=== PATIENT | male | born 1960 | race Caucasian/White ===

== ENCOUNTER → 2018-01-27 | Outpatient (CLI) | payer MEDICARE, MEDICAID ==
[~2018-01-27] VITALS: Ht 172.7 cm; Wt 100.3 kg
[~2018-01-27] MED LIST: GABA-531 PO; HYDR8TAB2 PO; LORA0.5T2 PO; MORP100T6 PO; MORP60CA19 PO; WARF5 PO; ZOLP6.252 PO
[2018-01-27 12:23] VITALS: BP 136/72
== END | disposition home or self-care (01) ==
LOC: HBOWC 11:23
PROVIDERS: ATTEND Emergency Medicine
DX: S81.801D Unspecified open wound, right lower leg, subsequent encounter (principal); I89.0 Lymphedema, not elsewhere classified; I73.9 Peripheral vascular disease, unspecified; J44.9 Chronic obstructive pulmonary disease, unspecified; E66.9 Obesity, unspecified; G89.29 Other chronic pain; F17.210 Nicotine dependence, cigarettes, uncomplicated; Z86.711 Personal history of pulmonary embolism; Z86.718 Personal history of other venous thrombosis and embolism; X58.XXXD Exposure to other specified factors, subsequent encounter
CPT/HCPCS: 11042; 11045; 97597

== ENCOUNTER → 2018-02-03 | Outpatient (CLI) | payer MEDICARE, MEDICAID ==
[2018-02-03 09:54] VITALS: BP 148/76
== END | disposition home or self-care (01) ==
LOC: HBOWC 08:46
PROVIDERS: ATTEND Emergency Medicine
DX: S81.801D Unspecified open wound, right lower leg, subsequent encounter (principal); I89.0 Lymphedema, not elsewhere classified; I73.9 Peripheral vascular disease, unspecified; J44.9 Chronic obstructive pulmonary disease, unspecified; E66.9 Obesity, unspecified; G89.29 Other chronic pain; F17.210 Nicotine dependence, cigarettes, uncomplicated; Z86.711 Personal history of pulmonary embolism; Z86.718 Personal history of other venous thrombosis and embolism; X58.XXXD Exposure to other specified factors, subsequent encounter
CPT/HCPCS: 11042; 11045

== ENCOUNTER → 2018-02-09 | Outpatient (CLI) | payer MEDICARE, MEDICAID ==
[~2018-02-09] MED LIST changes: +COLL30OI TP; -MORP100T6 PO; -WARF5 PO; -ZOLP6.252 PO
[2018-02-09 08:50] VITALS: BP 146/79
== END | disposition home or self-care (01) ==
LOC: HBOWC 08:37
PROVIDERS: ATTEND Surgery Plastic and Reconstructive Surgery
DX: S81.801D Unspecified open wound, right lower leg, subsequent encounter (principal); I89.0 Lymphedema, not elsewhere classified; I73.9 Peripheral vascular disease, unspecified; J44.9 Chronic obstructive pulmonary disease, unspecified; E66.9 Obesity, unspecified; G89.29 Other chronic pain; F17.210 Nicotine dependence, cigarettes, uncomplicated; Z86.711 Personal history of pulmonary embolism; Z86.718 Personal history of other venous thrombosis and embolism; X58.XXXD Exposure to other specified factors, subsequent encounter
CPT/HCPCS: 11043; 11046

== ENCOUNTER → 2018-02-17 | Outpatient (CLI) | payer MEDICARE, MEDICAID ==
[~2018-02-17] MED LIST changes: +LIDOCAINE HCL 4% 50 ML SOLUTION TP ONE
[2018-02-17 09:58] VITALS: BP 137/65
== END | disposition home or self-care (01) ==
LOC: HBOWC 09:12
PROVIDERS: ATTEND Emergency Medicine
DX: S81.801D Unspecified open wound, right lower leg, subsequent encounter (principal); I89.0 Lymphedema, not elsewhere classified; I73.9 Peripheral vascular disease, unspecified; J44.9 Chronic obstructive pulmonary disease, unspecified; E66.9 Obesity, unspecified; G89.29 Other chronic pain; F17.210 Nicotine dependence, cigarettes, uncomplicated; Z86.711 Personal history of pulmonary embolism; Z86.718 Personal history of other venous thrombosis and embolism; X58.XXXD Exposure to other specified factors, subsequent encounter
CPT/HCPCS: 11042; 11045

== ENCOUNTER → 2018-03-03 | Outpatient (CLI) | payer MEDICARE, MEDICAID ==
[~2018-03-03] MED LIST changes: +LIDOCAINE HCL 4% 50 ML SOLUTION ONE; -LIDOCAINE HCL 4% 50 ML SOLUTION TP ONE
[2018-03-03 09:33] VITALS: BP 147/74
== END | disposition home or self-care (01) ==
LOC: HBOWC 09:02
PROVIDERS: ATTEND Emergency Medicine
DX: S81.801D Unspecified open wound, right lower leg, subsequent encounter (principal); I89.0 Lymphedema, not elsewhere classified; I73.9 Peripheral vascular disease, unspecified; J44.9 Chronic obstructive pulmonary disease, unspecified; E66.9 Obesity, unspecified; G89.29 Other chronic pain; F17.210 Nicotine dependence, cigarettes, uncomplicated; Z86.711 Personal history of pulmonary embolism; Z86.718 Personal history of other venous thrombosis and embolism; X58.XXXD Exposure to other specified factors, subsequent encounter
CPT/HCPCS: 11042; 11045; 87070; 87205

== ENCOUNTER → 2018-03-10 | Outpatient (CLI) | payer MEDICARE, MEDICAID ==
[~2018-03-10] MED LIST changes: -LIDOCAINE HCL 4% 50 ML SOLUTION ONE; +LIDOCAINE HCL 4% 50 ML SOLUTION TP ONE
[2018-03-10 11:32] VITALS: BP 135/86
== END | disposition home or self-care (01) ==
LOC: HBOWC 10:54
PROVIDERS: ATTEND Emergency Medicine
DX: S81.801D Unspecified open wound, right lower leg, subsequent encounter (principal); I89.0 Lymphedema, not elsewhere classified; I73.9 Peripheral vascular disease, unspecified; J44.9 Chronic obstructive pulmonary disease, unspecified; E66.9 Obesity, unspecified; G89.29 Other chronic pain; F17.210 Nicotine dependence, cigarettes, uncomplicated; Z86.711 Personal history of pulmonary embolism; Z86.718 Personal history of other venous thrombosis and embolism; X58.XXXD Exposure to other specified factors, subsequent encounter
CPT/HCPCS: 11042; 11045

== ENCOUNTER → 2018-03-17 | Outpatient (CLI) | payer MEDICARE, MEDICAID ==
[2018-03-17 10:13] VITALS: BP 142/71
== END | disposition home or self-care (01) ==
LOC: HBOWC 09:47
PROVIDERS: ATTEND Emergency Medicine
DX: S81.801D Unspecified open wound, right lower leg, subsequent encounter (principal); I89.0 Lymphedema, not elsewhere classified; I73.9 Peripheral vascular disease, unspecified; J44.9 Chronic obstructive pulmonary disease, unspecified; E66.9 Obesity, unspecified; G89.29 Other chronic pain; F17.210 Nicotine dependence, cigarettes, uncomplicated; Z86.711 Personal history of pulmonary embolism; Z86.718 Personal history of other venous thrombosis and embolism; X58.XXXD Exposure to other specified factors, subsequent encounter
CPT/HCPCS: 11042; 11045

== ENCOUNTER → 2018-03-31 | Outpatient (CLI) | payer MEDICARE, MEDICAID ==
[2018-03-31 09:30] VITALS: BP 138/69
== END | disposition home or self-care (01) ==
LOC: HBOWC 08:55
PROVIDERS: ATTEND Emergency Medicine
DX: S81.801D Unspecified open wound, right lower leg, subsequent encounter (principal); I89.0 Lymphedema, not elsewhere classified; I87.2 Venous insufficiency (chronic) (peripheral); I73.9 Peripheral vascular disease, unspecified; J44.9 Chronic obstructive pulmonary disease, unspecified; E66.9 Obesity, unspecified; G89.29 Other chronic pain; F17.210 Nicotine dependence, cigarettes, uncomplicated; Z86.711 Personal history of pulmonary embolism; Z86.718 Personal history of other venous thrombosis and embolism; X58.XXXD Exposure to other specified factors, subsequent encounter
CPT/HCPCS: 11042; 11045

== ENCOUNTER → 2018-04-07 | Outpatient (CLI) | payer MEDICARE, MEDICAID ==
[2018-04-07 10:03] VITALS: BP 125/63
== END | disposition home or self-care (01) ==
LOC: HBOWC 09:36
PROVIDERS: ATTEND Emergency Medicine
DX: S81.801D Unspecified open wound, right lower leg, subsequent encounter (principal); I89.0 Lymphedema, not elsewhere classified; I87.2 Venous insufficiency (chronic) (peripheral); I73.9 Peripheral vascular disease, unspecified; J44.9 Chronic obstructive pulmonary disease, unspecified; E66.9 Obesity, unspecified; G89.29 Other chronic pain; F17.210 Nicotine dependence, cigarettes, uncomplicated; Z86.711 Personal history of pulmonary embolism; Z86.718 Personal history of other venous thrombosis and embolism; X58.XXXD Exposure to other specified factors, subsequent encounter
CPT/HCPCS: 11042; 11045

== ENCOUNTER → 2018-04-14 | Outpatient (CLI) | payer MEDICARE, MEDICAID ==
[2018-04-14 10:10] VITALS: BP 148/81
== END | disposition home or self-care (01) ==
LOC: HBOWC 09:45
PROVIDERS: ATTEND Emergency Medicine
DX: S81.801D Unspecified open wound, right lower leg, subsequent encounter (principal); I89.0 Lymphedema, not elsewhere classified; I87.2 Venous insufficiency (chronic) (peripheral); I73.9 Peripheral vascular disease, unspecified; J44.9 Chronic obstructive pulmonary disease, unspecified; E66.9 Obesity, unspecified; G89.29 Other chronic pain; F17.210 Nicotine dependence, cigarettes, uncomplicated; Z86.711 Personal history of pulmonary embolism; Z86.718 Personal history of other venous thrombosis and embolism; X58.XXXD Exposure to other specified factors, subsequent encounter
CPT/HCPCS: 11042; 11045; 93880; 93925

== ENCOUNTER → 2018-04-21 | Outpatient (CLI) | payer MEDICARE, MEDICAID ==
[~2018-04-21] MED LIST changes: -LIDOCAINE HCL 4% 50 ML SOLUTION TP ONE
[2018-04-21 08:41] VITALS: BP 153/84
== END | disposition home or self-care (01) ==
LOC: HBOWC 08:24
PROVIDERS: ATTEND Emergency Medicine
DX: S81.801D Unspecified open wound, right lower leg, subsequent encounter (principal); I89.0 Lymphedema, not elsewhere classified; I87.2 Venous insufficiency (chronic) (peripheral); I73.9 Peripheral vascular disease, unspecified; J44.9 Chronic obstructive pulmonary disease, unspecified; E66.9 Obesity, unspecified; G89.29 Other chronic pain; F17.210 Nicotine dependence, cigarettes, uncomplicated; Z86.711 Personal history of pulmonary embolism; Z86.718 Personal history of other venous thrombosis and embolism; X58.XXXD Exposure to other specified factors, subsequent encounter
CPT/HCPCS: 11042

== ENCOUNTER → 2018-05-12 | Outpatient (CLI) | payer MEDICARE, MEDICAID ==
[~2018-05-12] MED LIST changes: +LIDOCAINE 4% 50 ML SOLUTION TP ONE
[2018-05-12 10:15] VITALS: BP 163/78
== END | disposition home or self-care (01) ==
LOC: HBOWC 09:22
PROVIDERS: ATTEND Emergency Medicine
DX: S81.801D Unspecified open wound, right lower leg, subsequent encounter (principal); I89.0 Lymphedema, not elsewhere classified; I87.2 Venous insufficiency (chronic) (peripheral); I73.9 Peripheral vascular disease, unspecified; J44.9 Chronic obstructive pulmonary disease, unspecified; E66.9 Obesity, unspecified; G89.29 Other chronic pain; F17.210 Nicotine dependence, cigarettes, uncomplicated; Z86.711 Personal history of pulmonary embolism; Z86.718 Personal history of other venous thrombosis and embolism; X58.XXXD Exposure to other specified factors, subsequent encounter
CPT/HCPCS: 11042; 11045

== ENCOUNTER → 2018-05-19 | Outpatient (CLI) | payer MEDICARE, MEDICAID ==
[~2018-05-19] MED LIST changes: -COLL30OI TP; +LIDOCAINE 4% 50 ML SOLUTION ONE; -LIDOCAINE 4% 50 ML SOLUTION TP ONE
[2018-05-19 10:07] VITALS: BP 145/80
== END | disposition home or self-care (01) ==
LOC: HBOWC 09:47
PROVIDERS: ATTEND Emergency Medicine
DX: S81.801D Unspecified open wound, right lower leg, subsequent encounter (principal); I89.0 Lymphedema, not elsewhere classified; I87.2 Venous insufficiency (chronic) (peripheral); I73.9 Peripheral vascular disease, unspecified; J44.9 Chronic obstructive pulmonary disease, unspecified; E66.9 Obesity, unspecified; G89.29 Other chronic pain; F17.210 Nicotine dependence, cigarettes, uncomplicated; Z86.711 Personal history of pulmonary embolism; Z86.718 Personal history of other venous thrombosis and embolism; X58.XXXD Exposure to other specified factors, subsequent encounter
CPT/HCPCS: 11042; 11045

== ENCOUNTER → 2018-06-02 | Outpatient (CLI) | payer MEDICARE, MEDICAID ==
[~2018-06-02] MED LIST changes: -LIDOCAINE 4% 50 ML SOLUTION ONE
[2018-06-02 10:14] VITALS: BP 121/64
== END | disposition home or self-care (01) ==
LOC: HBOWC 09:47
PROVIDERS: ATTEND Emergency Medicine
DX: S81.801D Unspecified open wound, right lower leg, subsequent encounter (principal); I89.0 Lymphedema, not elsewhere classified; I87.2 Venous insufficiency (chronic) (peripheral); I73.9 Peripheral vascular disease, unspecified; J44.9 Chronic obstructive pulmonary disease, unspecified; E66.9 Obesity, unspecified; G89.29 Other chronic pain; F17.210 Nicotine dependence, cigarettes, uncomplicated; Z86.711 Personal history of pulmonary embolism; Z86.718 Personal history of other venous thrombosis and embolism; X58.XXXD Exposure to other specified factors, subsequent encounter
CPT/HCPCS: 11042

== ENCOUNTER → 2018-06-09 | Outpatient (CLI) | payer MEDICARE, MEDICAID ==
[~2018-06-09] MED LIST changes: +LIDOCAINE 4% 50 ML SOLUTION TP ONE
[2018-06-09 10:10] VITALS: BP 121/76
== END | disposition home or self-care (01) ==
LOC: HBOWC 09:53
PROVIDERS: ATTEND Emergency Medicine
DX: S81.801D Unspecified open wound, right lower leg, subsequent encounter (principal); I89.0 Lymphedema, not elsewhere classified; I87.2 Venous insufficiency (chronic) (peripheral); I73.9 Peripheral vascular disease, unspecified; J44.9 Chronic obstructive pulmonary disease, unspecified; E66.9 Obesity, unspecified; G89.29 Other chronic pain; F17.210 Nicotine dependence, cigarettes, uncomplicated; Z86.711 Personal history of pulmonary embolism; Z86.718 Personal history of other venous thrombosis and embolism; X58.XXXD Exposure to other specified factors, subsequent encounter
CPT/HCPCS: 11042; 11045

== ENCOUNTER 2018-06-15 13:18 | Emergency (ER) | payer MEDICARE, MEDICAID ==
[~2018-06-15] VITALS: Ht 182.9 cm; Wt 86.4 kg
[~2018-06-15 13:18] MED LIST changes: -LIDOCAINE 4% 50 ML SOLUTION TP ONE
[2018-06-15] MEDS ORDERED: MORPHINE SULFATE 4 MG/ML SYRINGE IM ONE (15:00)
[2018-06-15] MEDS ORDERED: KETOROLAC TROMETHAMINE 30 MG/ML VIAL IVP ONE (15:00)
[2018-06-15] MEDS ORDERED: ONDANSETRON HCL 4 MG/2 ML VIAL IM ONE (15:00)
[2018-06-15 15:13] LABS: BASOPHILS % (AUTO) 0.2 % (0.0-2.0); EOSINOPHILS % (AUTO) 0.1 % (1.0-6.0); HEMATOCRIT 38.1 % (41-53); HEMOGLOBIN 12.7 g/dL (13.5-17.5); LYMPHOCYTES # (AUTO) 0.5 K/uL (1.0-4.8); LYMPHOCYTES % (AUTO) 8.2 % (22.0-44.0); MEAN CORPUSCULAR HGB CONC 33.4 G/dL (31.0-37.0); MEAN CORPUSCULAR VOLUME 96 fL (80-100); MONOCYTES # (AUTO) 0.3 K/uL (0.1-1.0); MONOCYTES % (AUTO) 5.3 % (2.0-9.0); NEUTROPHILS # (AUTO) 5.5 K/uL (1.8-7.7); PLATELET COUNT (AUTO) 223 K/uL (150-450); RED BLOOD CELL COUNT(AUTO) 3.97 MIL/uL (4.50-5.90); RED CELL DISTRIBUTION WIDTH 15.5 % (11.5-14.5)
[2018-06-15] MEDS ORDERED: ALPRAZolam 0.25 MG TABLET PO ONE (15:15)
[2018-06-15 15:18] LABS: NEUTROPHILS % (AUTO) 86.2 % (40.0-70.0)
[2018-06-15 15:26] LABS: CALCIUM, TOTAL 8.4 mg/dL (8.8-10.5); CREATININE 1.54 mg/dL (0.60-1.30); POTASSIUM 5.3 mmol/L (3.5-5.1)
[2018-06-15 15:34] LABS: LACTIC ACID 0.7 mmol/L (0.4-2.0)
[2018-06-15 15:40] LABS: BILIRUBIN,TOTAL 0.5 mg/dL (0.1-1.0); TOTAL PROTEIN, SERUM 8.2 g/dL (6.4-8.2)
[2018-06-15] MEDS ORDERED: SODIUM CHLORIDE 0.9% 1,000 ML IV ONE (17:00)
[2018-06-15] MEDS ORDERED: IOVERSOL 350 MG/ML 100 ML VIAL ONE (17:41)
[2018-06-15] MEDS ORDERED: SODIUM CHLORIDE 0.9% 100 ML ONE (17:41)
[2018-06-15 19:19] VITALS: BP 131/67
== END 2018-06-15 19:50 | disposition home or self-care (01) ==
LOC: EMS 13:19
DX: I89.0 Lymphedema, not elsewhere classified (principal); I82.5Z3 Chronic embolism and thrombosis of unspecified deep veins of distal lower extremity, bilateral; G89.29 Other chronic pain; E87.5 Hyperkalemia; N19 Unspecified kidney failure; F17.210 Nicotine dependence, cigarettes, uncomplicated; Z96.649 Presence of unspecified artificial hip joint; Z79.899 Other long term (current) drug therapy; Z79.891 Long term (current) use of opiate analgesic
CPT/HCPCS: 36415; 71275; 80053; 83605; 83880; 85025; 85379; 87040; 87070; 87205; 93970; 96374; 99285; 99406; J1885; J7030; J7050; Q9967

== ENCOUNTER → 2018-06-23 | Outpatient (CLI) | payer MEDICARE, MEDICAID ==
[~2018-06-23] MED LIST changes: +CHLORHEXIDINE GLUCONATE 4% 118 ML TOPICAL LIQUID TP ONE; +LIDOCAINE 4% 50 ML SOLUTION TP ONE
[2018-06-23 10:41] VITALS: BP 147/77
== END | disposition home or self-care (01) ==
LOC: HBOWC 10:04
PROVIDERS: ATTEND Emergency Medicine
DX: L89.893 Pressure ulcer of other site, stage 3 (principal); S90.414A Abrasion, right lesser toe(s), initial encounter; I89.0 Lymphedema, not elsewhere classified; I73.9 Peripheral vascular disease, unspecified; I87.2 Venous insufficiency (chronic) (peripheral); J44.9 Chronic obstructive pulmonary disease, unspecified; I83.899 Varicose veins of unspecified lower extremity with other complications; E66.9 Obesity, unspecified; F17.210 Nicotine dependence, cigarettes, uncomplicated; Z86.718 Personal history of other venous thrombosis and embolism; Z86.711 Personal history of pulmonary embolism; Z79.891 Long term (current) use of opiate analgesic; Z96.649 Presence of unspecified artificial hip joint; W19.XXXA Unspecified fall, initial encounter; Y93.89 Activity, other specified; Y92.89 Other specified places as the place of occurrence of the external cause; Y99.8 Other external cause status
CPT/HCPCS: 11042; 11045

== ENCOUNTER → 2018-06-30 | Outpatient (CLI) | payer MEDICARE, MEDICAID ==
[~2018-06-30] MED LIST changes: -CHLORHEXIDINE GLUCONATE 4% 118 ML TOPICAL LIQUID TP ONE
[2018-06-30 10:06] VITALS: BP 148/82
== END | disposition home or self-care (01) ==
LOC: HBOWC 09:45
PROVIDERS: ATTEND Emergency Medicine
DX: S81.801D Unspecified open wound, right lower leg, subsequent encounter (principal); I89.0 Lymphedema, not elsewhere classified; I87.2 Venous insufficiency (chronic) (peripheral); I73.9 Peripheral vascular disease, unspecified; J44.9 Chronic obstructive pulmonary disease, unspecified; E66.9 Obesity, unspecified; G89.29 Other chronic pain; F17.210 Nicotine dependence, cigarettes, uncomplicated; Z86.711 Personal history of pulmonary embolism; Z86.718 Personal history of other venous thrombosis and embolism; X58.XXXD Exposure to other specified factors, subsequent encounter
CPT/HCPCS: 11042; 11045

== ENCOUNTER → 2018-07-07 | Outpatient (CLI) | payer MEDICARE, MEDICAID ==
[2018-07-07 09:10] VITALS: BP 154/84
== END | disposition home or self-care (01) ==
LOC: HBOWC 08:45
PROVIDERS: ATTEND Emergency Medicine
DX: S81.801D Unspecified open wound, right lower leg, subsequent encounter (principal); S90.414D Abrasion, right lesser toe(s), subsequent encounter; I89.0 Lymphedema, not elsewhere classified; I87.2 Venous insufficiency (chronic) (peripheral); I73.9 Peripheral vascular disease, unspecified; I83.893 Varicose veins of bilateral lower extremities with other complications; J44.9 Chronic obstructive pulmonary disease, unspecified; E66.9 Obesity, unspecified; F17.210 Nicotine dependence, cigarettes, uncomplicated; Z86.711 Personal history of pulmonary embolism; Z86.718 Personal history of other venous thrombosis and embolism; Z79.891 Long term (current) use of opiate analgesic; Z96.649 Presence of unspecified artificial hip joint; X58.XXXD Exposure to other specified factors, subsequent encounter
CPT/HCPCS: 11042; 11045

== ENCOUNTER → 2018-07-14 | Outpatient (CLI) | payer MEDICARE, MEDICAID ==
[~2018-07-14] MED LIST changes: -LIDOCAINE 4% 50 ML SOLUTION TP ONE
[2018-07-14 10:17] VITALS: BP 158/79
== END | disposition home or self-care (01) ==
LOC: HBOWC 09:56
PROVIDERS: ATTEND Emergency Medicine
DX: S81.801D Unspecified open wound, right lower leg, subsequent encounter (principal); I89.0 Lymphedema, not elsewhere classified; I87.2 Venous insufficiency (chronic) (peripheral); I73.9 Peripheral vascular disease, unspecified; I83.893 Varicose veins of bilateral lower extremities with other complications; J44.9 Chronic obstructive pulmonary disease, unspecified; E66.9 Obesity, unspecified; F17.210 Nicotine dependence, cigarettes, uncomplicated; Z86.711 Personal history of pulmonary embolism; Z86.718 Personal history of other venous thrombosis and embolism; Z79.891 Long term (current) use of opiate analgesic; Z96.649 Presence of unspecified artificial hip joint; X58.XXXD Exposure to other specified factors, subsequent encounter
CPT/HCPCS: 11042; 11045

== ENCOUNTER → 2018-07-21 | Outpatient (CLI) | payer MEDICARE, MEDICAID ==
[~2018-07-21] MED LIST changes: +LIDOCAINE 4% 50 ML SOLUTION TP ONE
[2018-07-21 10:10] VITALS: BP 103/65
== END | disposition home or self-care (01) ==
LOC: HBOWC 09:51
PROVIDERS: ATTEND Emergency Medicine
DX: I83.012 Varicose veins of right lower extremity with ulcer of calf (principal); L89.893 Pressure ulcer of other site, stage 3; S61.011D Laceration without foreign body of right thumb without damage to nail, subsequent encounter; I89.0 Lymphedema, not elsewhere classified; I73.9 Peripheral vascular disease, unspecified; I87.2 Venous insufficiency (chronic) (peripheral); J44.9 Chronic obstructive pulmonary disease, unspecified; F17.210 Nicotine dependence, cigarettes, uncomplicated; E66.9 Obesity, unspecified; Z86.718 Personal history of other venous thrombosis and embolism; Z86.711 Personal history of pulmonary embolism; Z79.891 Long term (current) use of opiate analgesic; Z96.649 Presence of unspecified artificial hip joint; X58.XXXD Exposure to other specified factors, subsequent encounter
CPT/HCPCS: 11042; 11045

== ENCOUNTER → 2018-07-28 | Outpatient (CLI) | payer MEDICARE, MEDICAID ==
[2018-07-28 09:30] VITALS: BP 126/79
== END | disposition home or self-care (01) ==
LOC: HBOWC 09:05
PROVIDERS: ATTEND Emergency Medicine
DX: I83.012 Varicose veins of right lower extremity with ulcer of calf (principal); L89.893 Pressure ulcer of other site, stage 3; L97.212 Non-pressure chronic ulcer of right calf with fat layer exposed; J44.9 Chronic obstructive pulmonary disease, unspecified; I89.0 Lymphedema, not elsewhere classified; E66.9 Obesity, unspecified; I73.9 Peripheral vascular disease, unspecified; I87.2 Venous insufficiency (chronic) (peripheral); G89.29 Other chronic pain; E87.5 Hyperkalemia; F17.210 Nicotine dependence, cigarettes, uncomplicated; Z79.899 Other long term (current) drug therapy; Z79.891 Long term (current) use of opiate analgesic; Z86.718 Personal history of other venous thrombosis and embolism; Z86.711 Personal history of pulmonary embolism; Z96.649 Presence of unspecified artificial hip joint
CPT/HCPCS: 11042; 11045

== ENCOUNTER → 2018-08-11 | Outpatient (CLI) | payer MEDICARE, MEDICAID ==
[~2018-08-11] MED LIST changes: -LIDOCAINE 4% 50 ML SOLUTION TP ONE
[2018-08-11 10:10] VITALS: BP 145/71
== END | disposition home or self-care (01) ==
LOC: HBOWC 10:07
PROVIDERS: ATTEND Emergency Medicine
DX: L89.893 Pressure ulcer of other site, stage 3 (principal); I83.893 Varicose veins of bilateral lower extremities with other complications; I89.0 Lymphedema, not elsewhere classified; I87.2 Venous insufficiency (chronic) (peripheral); I73.89 Other specified peripheral vascular diseases; F41.9 Anxiety disorder, unspecified; J44.9 Chronic obstructive pulmonary disease, unspecified; E66.9 Obesity, unspecified; G89.29 Other chronic pain; F17.210 Nicotine dependence, cigarettes, uncomplicated; Z79.891 Long term (current) use of opiate analgesic; Z86.711 Personal history of pulmonary embolism; Z96.649 Presence of unspecified artificial hip joint; Z86.73 Personal history of transient ischemic attack (TIA), and cerebral infarction without residual deficits; Z86.718 Personal history of other venous thrombosis and embolism
CPT/HCPCS: 11042; 11045

== ENCOUNTER → 2018-09-01 | Outpatient (CLI) | payer MEDICARE, MEDICAID ==
[2018-09-01 09:52] VITALS: BP 146/81
== END | disposition home or self-care (01) ==
LOC: HBOWC 09:36
PROVIDERS: ATTEND Emergency Medicine
DX: L89.893 Pressure ulcer of other site, stage 3 (principal); I83.893 Varicose veins of bilateral lower extremities with other complications; I89.0 Lymphedema, not elsewhere classified; I87.2 Venous insufficiency (chronic) (peripheral); I73.89 Other specified peripheral vascular diseases; F41.9 Anxiety disorder, unspecified; J44.9 Chronic obstructive pulmonary disease, unspecified; E66.9 Obesity, unspecified; G89.29 Other chronic pain; F17.210 Nicotine dependence, cigarettes, uncomplicated; Z79.891 Long term (current) use of opiate analgesic; Z86.711 Personal history of pulmonary embolism; Z96.649 Presence of unspecified artificial hip joint; Z86.73 Personal history of transient ischemic attack (TIA), and cerebral infarction without residual deficits; Z86.718 Personal history of other venous thrombosis and embolism
CPT/HCPCS: 11042; 87070; 87205

== ENCOUNTER → 2018-09-08 | Outpatient (CLI) | payer MEDICARE, MEDICAID ==
[2018-09-08 10:01] VITALS: BP 146/80
== END | disposition home or self-care (01) ==
LOC: HBOWC 09:36
PROVIDERS: ATTEND Emergency Medicine
DX: L89.893 Pressure ulcer of other site, stage 3 (principal); I89.0 Lymphedema, not elsewhere classified; I87.2 Venous insufficiency (chronic) (peripheral); I83.93 Asymptomatic varicose veins of bilateral lower extremities; I73.89 Other specified peripheral vascular diseases; J44.9 Chronic obstructive pulmonary disease, unspecified; G89.29 Other chronic pain; E66.9 Obesity, unspecified; F17.210 Nicotine dependence, cigarettes, uncomplicated; F41.9 Anxiety disorder, unspecified; Z79.891 Long term (current) use of opiate analgesic; Z86.718 Personal history of other venous thrombosis and embolism; Z86.711 Personal history of pulmonary embolism; Z96.649 Presence of unspecified artificial hip joint; Z86.73 Personal history of transient ischemic attack (TIA), and cerebral infarction without residual deficits
CPT/HCPCS: 11042; 11045

== ENCOUNTER → 2018-09-22 | Outpatient (CLI) | payer MEDICARE, MEDICAID ==
[2018-09-22 10:07] VITALS: BP 134/67
== END | disposition home or self-care (01) ==
LOC: HBOWC 09:56
PROVIDERS: ATTEND Emergency Medicine
DX: L89.893 Pressure ulcer of other site, stage 3 (principal); I89.0 Lymphedema, not elsewhere classified; I87.2 Venous insufficiency (chronic) (peripheral); I83.93 Asymptomatic varicose veins of bilateral lower extremities; I73.89 Other specified peripheral vascular diseases; J44.9 Chronic obstructive pulmonary disease, unspecified; E66.9 Obesity, unspecified; G89.29 Other chronic pain; F17.210 Nicotine dependence, cigarettes, uncomplicated; F41.9 Anxiety disorder, unspecified; Z79.891 Long term (current) use of opiate analgesic; Z86.718 Personal history of other venous thrombosis and embolism; Z86.711 Personal history of pulmonary embolism; Z86.73 Personal history of transient ischemic attack (TIA), and cerebral infarction without residual deficits
CPT/HCPCS: 11042; 11045

== ENCOUNTER → 2018-10-06 | Outpatient (CLI) | payer MEDICARE, MEDICAID ==
[2018-10-06 10:32] VITALS: BP 122/72
== END | disposition home or self-care (01) ==
LOC: HBOWC 09:38
PROVIDERS: ATTEND Emergency Medicine
DX: I83.012 Varicose veins of right lower extremity with ulcer of calf (principal); L89.893 Pressure ulcer of other site, stage 3; I83.892 Varicose veins of left lower extremity with other complications; I89.0 Lymphedema, not elsewhere classified; I87.2 Venous insufficiency (chronic) (peripheral); I73.89 Other specified peripheral vascular diseases; J44.9 Chronic obstructive pulmonary disease, unspecified; G89.29 Other chronic pain; E66.9 Obesity, unspecified; F41.9 Anxiety disorder, unspecified; F17.210 Nicotine dependence, cigarettes, uncomplicated; Z86.718 Personal history of other venous thrombosis and embolism; Z86.711 Personal history of pulmonary embolism; Z86.73 Personal history of transient ischemic attack (TIA), and cerebral infarction without residual deficits; Z79.891 Long term (current) use of opiate analgesic; Z96.649 Presence of unspecified artificial hip joint
CPT/HCPCS: 11042; 11045

== ENCOUNTER → 2018-10-13 | Outpatient (CLI) | payer MEDICARE, MEDICAID ==
[2018-10-13 11:59] VITALS: BP 150/90
== END | disposition home or self-care (01) ==
LOC: HBOWC 10:23
PROVIDERS: ATTEND Emergency Medicine
DX: I83.012 Varicose veins of right lower extremity with ulcer of calf (principal); L89.893 Pressure ulcer of other site, stage 3; I89.0 Lymphedema, not elsewhere classified; I83.892 Varicose veins of left lower extremity with other complications; I73.89 Other specified peripheral vascular diseases; I87.2 Venous insufficiency (chronic) (peripheral); J44.9 Chronic obstructive pulmonary disease, unspecified; G89.29 Other chronic pain; E66.9 Obesity, unspecified; F41.9 Anxiety disorder, unspecified; Z86.718 Personal history of other venous thrombosis and embolism; F17.210 Nicotine dependence, cigarettes, uncomplicated; Z86.711 Personal history of pulmonary embolism; Z96.649 Presence of unspecified artificial hip joint; Z86.73 Personal history of transient ischemic attack (TIA), and cerebral infarction without residual deficits; Z79.891 Long term (current) use of opiate analgesic
CPT/HCPCS: 11042; 11045

== ENCOUNTER → 2018-10-27 | Outpatient (CLI) | payer MEDICARE, MEDICAID ==
[~2018-10-27] MED LIST changes: +LIDOCAINE 4% 50 ML SOLUTION TP ONE
[2018-10-27 11:15] VITALS: BP 146/86
== END | disposition home or self-care (01) ==
LOC: HBOWC 10:57
PROVIDERS: ATTEND Emergency Medicine
DX: I83.012 Varicose veins of right lower extremity with ulcer of calf (principal); L89.893 Pressure ulcer of other site, stage 3; I83.892 Varicose veins of left lower extremity with other complications; I89.0 Lymphedema, not elsewhere classified; I73.89 Other specified peripheral vascular diseases; I87.2 Venous insufficiency (chronic) (peripheral); J44.9 Chronic obstructive pulmonary disease, unspecified; G89.29 Other chronic pain; E66.9 Obesity, unspecified; F41.9 Anxiety disorder, unspecified; F17.210 Nicotine dependence, cigarettes, uncomplicated; Z86.718 Personal history of other venous thrombosis and embolism; Z86.711 Personal history of pulmonary embolism; Z95.828 Presence of other vascular implants and grafts; Z86.73 Personal history of transient ischemic attack (TIA), and cerebral infarction without residual deficits; Z79.891 Long term (current) use of opiate analgesic
CPT/HCPCS: 11042; 11045

== ENCOUNTER → 2018-11-24 | Outpatient (CLI) | payer MEDICARE, MEDICAID ==
[~2018-11-24] MED LIST changes: -LIDOCAINE 4% 50 ML SOLUTION TP ONE
[2018-11-24 11:03] VITALS: BP 152/82
== END | disposition home or self-care (01) ==
LOC: HBOWC 10:07
PROVIDERS: ATTEND Emergency Medicine
DX: I83.012 Varicose veins of right lower extremity with ulcer of calf (principal); L89.893 Pressure ulcer of other site, stage 3; L97.212 Non-pressure chronic ulcer of right calf with fat layer exposed; I83.892 Varicose veins of left lower extremity with other complications; I89.0 Lymphedema, not elsewhere classified; I87.2 Venous insufficiency (chronic) (peripheral); I73.89 Other specified peripheral vascular diseases; J44.9 Chronic obstructive pulmonary disease, unspecified; G89.29 Other chronic pain; E66.9 Obesity, unspecified; F41.9 Anxiety disorder, unspecified; F17.210 Nicotine dependence, cigarettes, uncomplicated; Z86.718 Personal history of other venous thrombosis and embolism; Z86.711 Personal history of pulmonary embolism; Z95.828 Presence of other vascular implants and grafts; Z79.891 Long term (current) use of opiate analgesic; Z86.73 Personal history of transient ischemic attack (TIA), and cerebral infarction without residual deficits; Z96.649 Presence of unspecified artificial hip joint
CPT/HCPCS: 11042; 11045; 87070; 87205

== ENCOUNTER → 2018-12-01 | Outpatient (CLI) | payer MEDICARE, MEDICAID ==
[~2018-12-01] MED LIST changes: +ANTIHYPERTENSIVE PO; +DOCU250C91 PO; +DOCU50LI12 PO; +LIDOCAINE 4% 50 ML SOLUTION TP ONE
[2018-12-01 11:00] VITALS: BP 126/69
== END | disposition home or self-care (01) ==
LOC: HBOWC 10:41
PROVIDERS: ATTEND Emergency Medicine
DX: I83.012 Varicose veins of right lower extremity with ulcer of calf (principal); L89.893 Pressure ulcer of other site, stage 3; L97.212 Non-pressure chronic ulcer of right calf with fat layer exposed; I83.892 Varicose veins of left lower extremity with other complications; I89.0 Lymphedema, not elsewhere classified; I87.2 Venous insufficiency (chronic) (peripheral); J44.9 Chronic obstructive pulmonary disease, unspecified; N18.9 Chronic kidney disease, unspecified; G89.4 Chronic pain syndrome; E66.9 Obesity, unspecified; F41.9 Anxiety disorder, unspecified; F17.210 Nicotine dependence, cigarettes, uncomplicated; Z96.649 Presence of unspecified artificial hip joint; Z86.718 Personal history of other venous thrombosis and embolism; Z86.711 Personal history of pulmonary embolism; Z95.828 Presence of other vascular implants and grafts; Z86.73 Personal history of transient ischemic attack (TIA), and cerebral infarction without residual deficits; Z79.891 Long term (current) use of opiate analgesic
CPT/HCPCS: 11042; 11045

== ENCOUNTER → 2018-12-08 | Outpatient (CLI) | payer MEDICARE, MEDICAID ==
[~2018-12-08] MED LIST changes: -DOCU50LI12 PO; -LIDOCAINE 4% 50 ML SOLUTION TP ONE
[2018-12-08 11:20] VITALS: BP 106/74
== END | disposition home or self-care (01) ==
LOC: HBOWC 11:09
PROVIDERS: ATTEND Emergency Medicine
DX: I83.012 Varicose veins of right lower extremity with ulcer of calf (principal); L89.893 Pressure ulcer of other site, stage 3; L97.212 Non-pressure chronic ulcer of right calf with fat layer exposed; I83.892 Varicose veins of left lower extremity with other complications; I89.0 Lymphedema, not elsewhere classified; I87.2 Venous insufficiency (chronic) (peripheral); J44.9 Chronic obstructive pulmonary disease, unspecified; N18.9 Chronic kidney disease, unspecified; G89.4 Chronic pain syndrome; E66.9 Obesity, unspecified; F41.9 Anxiety disorder, unspecified; F17.210 Nicotine dependence, cigarettes, uncomplicated; Z96.649 Presence of unspecified artificial hip joint; Z86.718 Personal history of other venous thrombosis and embolism; Z86.711 Personal history of pulmonary embolism; Z95.828 Presence of other vascular implants and grafts; Z86.73 Personal history of transient ischemic attack (TIA), and cerebral infarction without residual deficits; Z79.891 Long term (current) use of opiate analgesic
CPT/HCPCS: 11042; 11045

== ENCOUNTER → 2018-12-15 | Outpatient (CLI) | payer MEDICARE, MEDICAID ==
[2018-12-15 11:10] VITALS: BP 136/70
== END | disposition home or self-care (01) ==
LOC: HBOWC 10:45
PROVIDERS: ATTEND Emergency Medicine
DX: I83.012 Varicose veins of right lower extremity with ulcer of calf (principal); L89.893 Pressure ulcer of other site, stage 3; L97.212 Non-pressure chronic ulcer of right calf with fat layer exposed; I83.892 Varicose veins of left lower extremity with other complications; I89.0 Lymphedema, not elsewhere classified; I87.2 Venous insufficiency (chronic) (peripheral); J44.9 Chronic obstructive pulmonary disease, unspecified; N18.9 Chronic kidney disease, unspecified; G89.4 Chronic pain syndrome; E66.9 Obesity, unspecified; F41.9 Anxiety disorder, unspecified; F17.210 Nicotine dependence, cigarettes, uncomplicated; Z96.649 Presence of unspecified artificial hip joint; Z86.718 Personal history of other venous thrombosis and embolism; Z86.711 Personal history of pulmonary embolism; Z95.828 Presence of other vascular implants and grafts; Z86.73 Personal history of transient ischemic attack (TIA), and cerebral infarction without residual deficits; Z79.891 Long term (current) use of opiate analgesic
CPT/HCPCS: 11042; 11045

== ENCOUNTER → 2018-12-29 | Outpatient (CLI) | payer MEDICARE, MEDICAID ==
[2018-12-29 11:30] VITALS: BP 153/82
== END | disposition home or self-care (01) ==
LOC: HBOWC 12:15
PROVIDERS: ATTEND Emergency Medicine
DX: I83.012 Varicose veins of right lower extremity with ulcer of calf (principal); L89.893 Pressure ulcer of other site, stage 3; L97.212 Non-pressure chronic ulcer of right calf with fat layer exposed; I83.892 Varicose veins of left lower extremity with other complications; I89.0 Lymphedema, not elsewhere classified; I87.2 Venous insufficiency (chronic) (peripheral); J44.9 Chronic obstructive pulmonary disease, unspecified; N18.9 Chronic kidney disease, unspecified; G89.4 Chronic pain syndrome; E66.9 Obesity, unspecified; F41.9 Anxiety disorder, unspecified; F17.210 Nicotine dependence, cigarettes, uncomplicated; Z96.649 Presence of unspecified artificial hip joint; Z86.718 Personal history of other venous thrombosis and embolism; Z86.711 Personal history of pulmonary embolism; Z95.828 Presence of other vascular implants and grafts; Z86.73 Personal history of transient ischemic attack (TIA), and cerebral infarction without residual deficits; Z79.891 Long term (current) use of opiate analgesic
CPT/HCPCS: 11042; 11045

== ENCOUNTER → 2019-01-19 | Outpatient (CLI) | payer MEDICARE, MEDICAID ==
[~2019-01-19] MED LIST changes: -ANTIHYPERTENSIVE PO; +BACTDSB PO; +CEPH500 PO
[2019-01-19 14:02] VITALS: BP 138/74
== END | disposition home or self-care (01) ==
LOC: HBOWC 11:57
PROVIDERS: ATTEND Emergency Medicine
DX: I83.012 Varicose veins of right lower extremity with ulcer of calf (principal); L89.893 Pressure ulcer of other site, stage 3; L97.212 Non-pressure chronic ulcer of right calf with fat layer exposed; I83.892 Varicose veins of left lower extremity with other complications; I89.0 Lymphedema, not elsewhere classified; I87.2 Venous insufficiency (chronic) (peripheral); J44.9 Chronic obstructive pulmonary disease, unspecified; N18.9 Chronic kidney disease, unspecified; G89.4 Chronic pain syndrome; E66.9 Obesity, unspecified; F41.9 Anxiety disorder, unspecified; F17.210 Nicotine dependence, cigarettes, uncomplicated; Z96.649 Presence of unspecified artificial hip joint; Z86.718 Personal history of other venous thrombosis and embolism; Z86.711 Personal history of pulmonary embolism; Z95.828 Presence of other vascular implants and grafts; Z86.73 Personal history of transient ischemic attack (TIA), and cerebral infarction without residual deficits; Z79.891 Long term (current) use of opiate analgesic
CPT/HCPCS: 11042; 11045

== ENCOUNTER → 2019-02-02 | Outpatient (CLI) | payer MEDICARE, MEDICAID ==
[~2019-02-02] MED LIST changes: +ACETIC ACID 0.25% 1000 ML IRRIGATION SOLUTION IRRIG ONE; +APIX5TAB PO; -BACTDSB PO; -CEPH500 PO; +LIDOCAINE 4% 50 ML SOLUTION TP ONE; +MULT-1203 PO
[2019-02-02 11:15] VITALS: BP 102/57
== END | disposition home or self-care (01) ==
LOC: HBOWC 10:06
PROVIDERS: ATTEND Emergency Medicine
DX: I83.012 Varicose veins of right lower extremity with ulcer of calf (principal); L89.893 Pressure ulcer of other site, stage 3; L97.212 Non-pressure chronic ulcer of right calf with fat layer exposed; I83.892 Varicose veins of left lower extremity with other complications; I89.0 Lymphedema, not elsewhere classified; I87.2 Venous insufficiency (chronic) (peripheral); J44.9 Chronic obstructive pulmonary disease, unspecified; N18.9 Chronic kidney disease, unspecified; G89.4 Chronic pain syndrome; E66.9 Obesity, unspecified; F41.9 Anxiety disorder, unspecified; F17.210 Nicotine dependence, cigarettes, uncomplicated; Z96.649 Presence of unspecified artificial hip joint; Z86.718 Personal history of other venous thrombosis and embolism; Z86.711 Personal history of pulmonary embolism; Z95.828 Presence of other vascular implants and grafts; Z86.73 Personal history of transient ischemic attack (TIA), and cerebral infarction without residual deficits; Z79.891 Long term (current) use of opiate analgesic
CPT/HCPCS: 11042; 11045

== ENCOUNTER → 2019-02-09 | Outpatient (CLI) | payer MEDICARE, MEDICAID ==
[~2019-02-09] MED LIST changes: -ACETIC ACID 0.25% 1000 ML IRRIGATION SOLUTION IRRIG ONE; +LIDOCAINE 4% 50 ML SOLUTION ONE; -LIDOCAINE 4% 50 ML SOLUTION TP ONE
[2019-02-09 11:01] VITALS: BP 110/78
== END | disposition home or self-care (01) ==
LOC: HBOWC 10:40
PROVIDERS: ATTEND Emergency Medicine
DX: I83.012 Varicose veins of right lower extremity with ulcer of calf (principal); L89.893 Pressure ulcer of other site, stage 3; L97.212 Non-pressure chronic ulcer of right calf with fat layer exposed; L89.150 Pressure ulcer of sacral region, unstageable; I89.0 Lymphedema, not elsewhere classified; I87.2 Venous insufficiency (chronic) (peripheral); I83.892 Varicose veins of left lower extremity with other complications; I73.9 Peripheral vascular disease, unspecified; E44.0 Moderate protein-calorie malnutrition; J44.9 Chronic obstructive pulmonary disease, unspecified; G89.4 Chronic pain syndrome; E66.9 Obesity, unspecified; I12.9 Hypertensive chronic kidney disease with stage 1 through stage 4 chronic kidney disease, or unspecified chronic kidney disease; N18.2 Chronic kidney disease, stage 2 (mild); F41.9 Anxiety disorder, unspecified; F17.210 Nicotine dependence, cigarettes, uncomplicated; Z86.718 Personal history of other venous thrombosis and embolism; Z86.711 Personal history of pulmonary embolism; Z95.828 Presence of other vascular implants and grafts; Z96.649 Presence of unspecified artificial hip joint; Z86.73 Personal history of transient ischemic attack (TIA), and cerebral infarction without residual deficits; Z79.891 Long term (current) use of opiate analgesic; Z79.01 Long term (current) use of anticoagulants
CPT/HCPCS: 11042; 11045

== ENCOUNTER → 2019-02-16 | Outpatient (CLI) | payer MEDICARE, MEDICAID ==
[~2019-02-16] MED LIST changes: -LIDOCAINE 4% 50 ML SOLUTION ONE
[2019-02-16 10:00] VITALS: BP 139/89
== END | disposition home or self-care (01) ==
LOC: HBOWC 09:41
PROVIDERS: ATTEND Emergency Medicine
DX: I83.012 Varicose veins of right lower extremity with ulcer of calf (principal); L89.893 Pressure ulcer of other site, stage 3; L97.212 Non-pressure chronic ulcer of right calf with fat layer exposed; L89.150 Pressure ulcer of sacral region, unstageable; I89.0 Lymphedema, not elsewhere classified; I87.2 Venous insufficiency (chronic) (peripheral); I83.892 Varicose veins of left lower extremity with other complications; I73.9 Peripheral vascular disease, unspecified; E44.0 Moderate protein-calorie malnutrition; J44.9 Chronic obstructive pulmonary disease, unspecified; G89.4 Chronic pain syndrome; E66.9 Obesity, unspecified; I12.9 Hypertensive chronic kidney disease with stage 1 through stage 4 chronic kidney disease, or unspecified chronic kidney disease; N18.2 Chronic kidney disease, stage 2 (mild); F41.9 Anxiety disorder, unspecified; F17.210 Nicotine dependence, cigarettes, uncomplicated; Z86.718 Personal history of other venous thrombosis and embolism; Z86.711 Personal history of pulmonary embolism; Z95.828 Presence of other vascular implants and grafts; Z96.649 Presence of unspecified artificial hip joint; Z86.73 Personal history of transient ischemic attack (TIA), and cerebral infarction without residual deficits; Z79.891 Long term (current) use of opiate analgesic; Z79.01 Long term (current) use of anticoagulants
CPT/HCPCS: 11042; 11045

== ENCOUNTER → 2019-02-23 | Outpatient (CLI) | payer MEDICARE, MEDICAID | END | disposition home or self-care (01) | LOC: RADMN 10:29 | PROVIDERS: ATTEND Emergency Medicine | DX: M87.861 Other osteonecrosis, right tibia (principal); M62.50 Muscle wasting and atrophy, not elsewhere classified, unspecified site; M85.88 Other specified disorders of bone density and structure, other site; R60.0 Localized edema | CPT/HCPCS: 73700 ==

== ENCOUNTER → 2019-03-23 | Outpatient (CLI) | payer MEDICARE, MEDICAID ==
[2019-03-23 12:29] VITALS: BP 142/73
== END | disposition home or self-care (01) ==
LOC: HBOWC 11:04
PROVIDERS: ATTEND Emergency Medicine
DX: I83.012 Varicose veins of right lower extremity with ulcer of calf (principal); L89.893 Pressure ulcer of other site, stage 3; L97.212 Non-pressure chronic ulcer of right calf with fat layer exposed; L89.150 Pressure ulcer of sacral region, unstageable; L98.491 Non-pressure chronic ulcer of skin of other sites limited to breakdown of skin; I83.013 Varicose veins of right lower extremity with ulcer of ankle; L97.311 Non-pressure chronic ulcer of right ankle limited to breakdown of skin; I87.2 Venous insufficiency (chronic) (peripheral); I89.0 Lymphedema, not elsewhere classified; I73.89 Other specified peripheral vascular diseases; I83.892 Varicose veins of left lower extremity with other complications; E44.0 Moderate protein-calorie malnutrition; J44.9 Chronic obstructive pulmonary disease, unspecified; G89.4 Chronic pain syndrome; I12.9 Hypertensive chronic kidney disease with stage 1 through stage 4 chronic kidney disease, or unspecified chronic kidney disease; N18.2 Chronic kidney disease, stage 2 (mild); E66.9 Obesity, unspecified; F17.210 Nicotine dependence, cigarettes, uncomplicated; F41.9 Anxiety disorder, unspecified; F11.20 Opioid dependence, uncomplicated; M86.171 Other acute osteomyelitis, right ankle and foot; M87.861 Other osteonecrosis, right tibia; Z86.718 Personal history of other venous thrombosis and embolism; Z86.711 Personal history of pulmonary embolism; Z95.828 Presence of other vascular implants and grafts; Z86.73 Personal history of transient ischemic attack (TIA), and cerebral infarction without residual deficits; Z79.01 Long term (current) use of anticoagulants
CPT/HCPCS: 11042; 11045

== ENCOUNTER → 2019-04-13 | Outpatient (CLI) | payer MEDICARE, MEDICAID ==
[~2019-04-13] MED LIST changes: +LIDOCAINE 4% 50 ML SOLUTION TP ONE
[2019-04-13 11:00] VITALS: BP 132/84
[2019-04-14 08:16] LABS: GLUCOMETER DEV NAME(LOC) HBW.; GLUCOSE,POINT OF CARE 100 MG/DL (70-110)
== END | disposition home or self-care (01) ==
LOC: HBOWC 10:57
PROVIDERS: ATTEND Emergency Medicine
DX: I83.012 Varicose veins of right lower extremity with ulcer of calf (principal); L89.893 Pressure ulcer of other site, stage 3; L97.212 Non-pressure chronic ulcer of right calf with fat layer exposed; L89.150 Pressure ulcer of sacral region, unstageable; L98.491 Non-pressure chronic ulcer of skin of other sites limited to breakdown of skin; I83.013 Varicose veins of right lower extremity with ulcer of ankle; L97.311 Non-pressure chronic ulcer of right ankle limited to breakdown of skin; I87.2 Venous insufficiency (chronic) (peripheral); I89.0 Lymphedema, not elsewhere classified; I73.89 Other specified peripheral vascular diseases; I83.892 Varicose veins of left lower extremity with other complications; E44.0 Moderate protein-calorie malnutrition; J44.9 Chronic obstructive pulmonary disease, unspecified; G89.4 Chronic pain syndrome; I12.9 Hypertensive chronic kidney disease with stage 1 through stage 4 chronic kidney disease, or unspecified chronic kidney disease; N18.2 Chronic kidney disease, stage 2 (mild); E66.9 Obesity, unspecified; F17.210 Nicotine dependence, cigarettes, uncomplicated; F41.9 Anxiety disorder, unspecified; F11.20 Opioid dependence, uncomplicated; M86.171 Other acute osteomyelitis, right ankle and foot; M87.861 Other osteonecrosis, right tibia; Z86.718 Personal history of other venous thrombosis and embolism; Z86.711 Personal history of pulmonary embolism; Z95.828 Presence of other vascular implants and grafts; Z86.73 Personal history of transient ischemic attack (TIA), and cerebral infarction without residual deficits; Z79.01 Long term (current) use of anticoagulants
CPT/HCPCS: 11042; 11045

== ENCOUNTER → 2019-05-11 | Outpatient (CLI) | payer MEDICARE, MEDICAID ==
[2019-05-11 10:30] VITALS: BP 135/76
== END | disposition home or self-care (01) ==
LOC: HBOWC 09:54
PROVIDERS: ATTEND Emergency Medicine
DX: I83.012 Varicose veins of right lower extremity with ulcer of calf (principal); L89.893 Pressure ulcer of other site, stage 3; L97.212 Non-pressure chronic ulcer of right calf with fat layer exposed; L89.150 Pressure ulcer of sacral region, unstageable; L98.491 Non-pressure chronic ulcer of skin of other sites limited to breakdown of skin; I83.013 Varicose veins of right lower extremity with ulcer of ankle; L97.311 Non-pressure chronic ulcer of right ankle limited to breakdown of skin; I87.2 Venous insufficiency (chronic) (peripheral); I89.0 Lymphedema, not elsewhere classified; I73.89 Other specified peripheral vascular diseases; I83.892 Varicose veins of left lower extremity with other complications; E44.0 Moderate protein-calorie malnutrition; J44.9 Chronic obstructive pulmonary disease, unspecified; I12.9 Hypertensive chronic kidney disease with stage 1 through stage 4 chronic kidney disease, or unspecified chronic kidney disease; N18.2 Chronic kidney disease, stage 2 (mild); E66.9 Obesity, unspecified; F17.210 Nicotine dependence, cigarettes, uncomplicated; F41.9 Anxiety disorder, unspecified; F11.20 Opioid dependence, uncomplicated; M86.171 Other acute osteomyelitis, right ankle and foot; M87.861 Other osteonecrosis, right tibia; Z86.718 Personal history of other venous thrombosis and embolism; Z86.711 Personal history of pulmonary embolism; Z95.828 Presence of other vascular implants and grafts; Z86.73 Personal history of transient ischemic attack (TIA), and cerebral infarction without residual deficits; Z79.01 Long term (current) use of anticoagulants
CPT/HCPCS: 11042; 11045; 87070; 87205